=== PATIENT | female | born 1995 | race African-American/Black ===

== ENCOUNTER 2017-05-06 20:04 | Emergency (ER) | payer OTHER ==
[~2017-05-06] VITALS: Ht 175.3 cm; Wt 90.9 kg
[2017-05-06 20:09] VITALS: BP 126/82
== END 2017-05-06 20:50 | disposition home or self-care (01) ==
LOC: EMS 20:05
DX: S30.860A Insect bite (nonvenomous) of lower back and pelvis, initial encounter (principal); S70.361A Insect bite (nonvenomous), right thigh, initial encounter; R03.0 Elevated blood-pressure reading, without diagnosis of hypertension; W57.XXXA Bitten or stung by nonvenomous insect and other nonvenomous arthropods, initial encounter; Y93.89 Activity, other specified; Y92.89 Other specified places as the place of occurrence of the external cause; Y99.8 Other external cause status
CPT/HCPCS: 99283